=== PATIENT | female | born 1985 | race Caucasian/White ===

== ENCOUNTER 2018-01-21 19:56 | Emergency (ER) | payer OTHER ==
[2018-01-21] MEDS ORDERED: Bacitracin Zinc 1 Packet ONE (21:48)
[2018-01-21] MEDS ORDERED: Lidocaine 1% (PF) 30 ML VIAL ONE (21:48)
[2018-01-21] MEDS ORDERED: Adacel (T-DAP) 0.5 ML VIAL ONE (22:12)
== END 2018-01-21 22:33 | disposition home or self-care (01) ==
LOC: ERS 19:56
DX: S61.215A Laceration without foreign body of left ring finger without damage to nail, initial encounter (principal); F90.9 Attention-deficit hyperactivity disorder, unspecified type; Z79.899 Other long term (current) drug therapy; W26.0XXA Contact with knife, initial encounter; Y92.009 Unspecified place in unspecified non-institutional (private) residence as the place of occurrence of the external cause
CPT/HCPCS: 12001; 90471; 90715; J2001